=== PATIENT | female | born 1990 | race Caucasian/White ===

== ENCOUNTER 2021-12-26 16:27 | Observation (INO) | payer OTHER ==
--- NOTE | 2021-12-26 16:48 | ED Physician Documentation ---
PD HPI ABD PAIN - Stated complaint Stated Complaint: BLEEDING/10WKS - Chief complaint Chief Complaint: Abd Pain - History obtained from History obtained from: Patient - Additional information Additional information: 31-year-old at 10 weeks gestation has a known intrauterine demise based on ultrasound done yesterday. Has been hemorrhaging since 1 PM today. Pain is modest in the low back. She is Rh+. Review of Systems Ten Systems: 10 systems reviewed and negative Constitutional: reports: Reviewed and negative Cardiac: reports: Reviewed and negative Respiratory: reports: Reviewed and negative PD PAST MEDICAL HISTORY - Past Medical History Past Medical History: No - Present Medications Home Medications: Ambulatory Orders Medication Instructions Recorded Confirmed No Known Home Medications 12/26/21 12/26/21 - Allergies Allergies/Adverse Reactions: Allergies Allergy/AdvReac Type Severity Reaction Status Date / Time sumatriptan Allergy Unknown Verified 12/26/21 16:40 - Social History Does the pt smoke?: No Smoking Status: Never smoker - Family History Family history: reports: Non contributory PD ED PE NORMAL - Vitals Vital signs reviewed: Yes - General General: Alert and oriented X 3, Other (She is tearful; She has a towel between her legs that is fairly saturated with blood. Also blood at the ankles.) - HEENT HEENT: PERRL, EOMI - Neck Neck: Supple, no meningeal sign, No bony TTP - Cardiac Cardiac: RRR, No murmur - Respiratory Respiratory: No respiratory distress, Clear bilaterally - Abdomen Abdomen: Soft, Non tender - Back Back: No CVA TTP, No spinal TTP - Derm Derm: Normal color, Warm and dry - Extremities Extremities: No edema, No calf tenderness / cord - Neuro Neuro: Alert and oriented X 3, Normal speech Results - Vitals Vitals: Vital Signs - 24 hr 12/26/21 12/26/21 12/26/21 16:34 17:13 19:09 Temperature 37.3 C Heart Rate 108 H 116 H 121 H Respiratory 16 20 14 Rate Blood Pressure 137/82 H 111/61 127/79 O2 Saturation 99 100 99 Oxygen O2 Source Room air - Labs Labs: Laboratory Tests 12/26/21 12/26/21 12/26/21 16:55 16:55 16:55 WBC 11.6 H RBC 4.46 Hgb 12.7 Hct 38.5 MCV 86.3 MCH 28.5 MCHC 33.0 RDW 13.3 Plt Count 321 MPV 9.9 Neut # (Auto) 7.6 H Lymph # (Auto) 2.8 [place] # (Auto) 0.9 Eos # (Auto) 0.1 Baso # (Auto) 0.1 Absolute Nucleated RBC 0.00 Nucleated RBC % 0.0 Sodium 140 Potassium 3.7 Chloride 105 Carbon Dioxide 24 Anion Gap 11.0 BUN 7 Creatinine 0.7 Estimated GFR (MDRD) 98 Glucose 101 H Calcium 9.3 Blood Type O POSITIVE Antibody Screen NEGATIVE 12/26/21 19:01 WBC RBC Hgb 12.6 Hct 37.2 MCV MCH MCHC RDW Plt Count MPV Neut # (Auto) Lymph # (Auto) [place] # (Auto) Eos # (Auto) Baso # (Auto) Absolute Nucleated RBC Nucleated RBC % Sodium Potassium Chloride Carbon Dioxide Anion Gap BUN Creatinine Estimated GFR (MDRD) Glucose Calcium Blood Type Antibody Screen PD MEDICAL DECISION MAKING - ED course ED course: 31-year-old at 10 weeks gestation has known intrauterine demise. She is now bleeding heavily. After initial evaluation I spoke with Dr. Smith, OB by phone he will come and see the patient. His plan was to administer 800 Micrograms of misoprostol and observe her bleeding. This was done. At female's before 7 PM she went to the bathroom and had a syncopal episode there. She still bleeding fairly heavily so Dr. Smith was reconsulted and a repeat H&H was ordered. Subsequent to his repeat evaluation plans to give her Methergine and place in observation. Departure - Departure Disposition: ED Place in Observation Clinical Impression: Miscarriage, Vaginal bleeding, Syncope Condition: Stable
[2021-12-26] MEDS ORDERED: miSOPROStoL 200 MCG TABLET BC STA (16:58)
[2021-12-26 17:04] LABS: BASOPHILS # (AUTO) 0.1 10^3/uL (0.0-0.1); BASOPHILS % (AUTO) 0.4 %; EOSINOPHILS # (AUTO) 0.1 10^3/uL (0.0-0.7); EOSINOPHILS % (AUTO) 0.8 %; HCT - HEMATOCRIT 38.5 % (37.0-47.0); HGB - HEMOGLOBIN 12.7 g/dL (12.0-16.0); LYMPHOCYTES # (AUTO) 2.8 10^3/uL (1.5-3.5); LYMPHOCYTES % (AUTO) 24.4 %; MEAN CORPUSCULAR HEMOGLOBIN 28.5 pg (27.0-31.0); MEAN CORPUSCULAR VOLUME 86.3 fL (81.0-99.0); MEAN PLATELET VOLUME 9.9 fL (7.9-10.8); MONOCYTES # (AUTO) 0.9 10^3/uL (0.0-1.0); MONOCYTES % (AUTO) 7.9 %; NEUTROPHILS # (AUTO) 7.6 10^3/uL (1.5-6.6); NEUTROPHILS % (AUTO) 66.1 %; PLT - PLATELET COUNT 321 10^3/uL (130-450); RED BLOOD COUNT 4.46 10^6/uL (4.20-5.40); RED CELL DISTRIBUTION WIDTH 13.3 % (12.0-15.0); WHITE BLOOD COUNT 11.6 x10^3/uL (4.8-10.8)
[2021-12-26 17:16] LABS: CALCIUM 9.3 mg/dL (8.5-10.3); CREATININE 0.7 mg/dL (0.4-1.0); POTASSIUM 3.7 mmol/L (3.5-5.0)
--- NOTE | 2021-12-26 17:28 | CONSULTATION NOTE ---
Surgery Consult - Consult Date Consult Date: 12/26/21 - Chief Complaint Chief Complaint: Vaginal bleeding - Home Meds/Allergies Home Medications: Patient History Medication Instructions Recorded Confirmed No Known Home Medications 12/26/21 12/26/21 Allergies/Adverse Reactions: Allergies Allergy/AdvReac Type Severity Reaction Status Date / Time sumatriptan Allergy Unknown Verified 12/26/21 16:40 - Vital Signs Vital Signs: Last Vital Signs Temp 99.1 F 12/26/21 16:34 Pulse 116 H 12/26/21 17:13 Resp 20 12/26/21 17:13 BP 111/61 12/26/21 17:13 Pulse Ox 100 12/26/21 17:13 - Lab Results Result Diagrams: 12/26/21 16:55 12/26/21 16:55 - Consultation Note Consultation Note: Patient is a [id number]-year-old -0-1-2 presenting to triage for spontaneous . She was seen previously on 12/09/2021 for spotting and had an ultrasound that showed a gestational sac. This did seem likely to be a abnormal given her elevated hCG level and small gestational sac. However we elected to repeat ultrasound in 2 weeks as there is no yolk sac seen. She did start bleeding approximately 3 days ago which was light until today when she felt a gush and started bleeding profusely. She started feeling a pad every 30 minutes. She was instructed to come to the ED if this persisted for 2 hours. She did have an ultrasound yesterday confirmed and an embryonic . She feels well overall except for the heavy bleeding. Past medical history Depression and anxiety Migraines Asthma Right ovarian cyst Past surgical history Denies Family history Father: Diabetes, hypertension hyperlipidemia, heart attack Sister: Depression Paternal grandmother: Depression Social history Denies tobacco, alcohol, drugs Physical Constitutional: alert,oriented, well hydrated, well-developed, well nourished, appropriate dress. Visibly sad, but not crying. Cardiovascular: Mild tachycardia Respiratory: no respiratory distress. Abdomen: nondistended, nontender, no guarding. Psych: affect and mood appropriate given the situation, normal interaction, good eye contact. Assessment and plan 31-year-old -0-1-2 with incomplete 1. Incomplete : -As she is bleeding rather heavily, she is likely completing her miscarriage. Offered expectant, medical, surgical management. Patient is worried with the bleeding so would like to start with medical management and avoid the OR if possible. Blood pressure is stable, although mild tachycardia. H&H also stable. -800 mcg misoprostol buccal. Can take a drink of water after 30 minutes install the rest. Discussed possible fever, cramps, and temporary bleeding from this. If your becomes unstable, we would consider OR for urgent treatment -Plan to observe for several hours -Little benefit to repeating ultrasound today as the presence of gestational sac would not change our management as her primary concern is the bleeding. Once bleeding resolves, can image if needed. -Offered overnight observation, but patient would prefer to have temporary treatment as she is worried about her has been getting to work early tomorrow morning. If bleeding subsides and patient feels comfortable, she can be discharged home.
[2021-12-26] MEDS ORDERED: SODIUM CHLORIDE 0.9% 1,000 ML IV STA (18:58)
[2021-12-26 19:07] LABS: HCT - HEMATOCRIT 37.2 % (37.0-47.0); HGB - HEMOGLOBIN 12.6 g/dL (12.0-16.0)
[2021-12-26] MEDS ORDERED: METHYLERGONOVINE 0.2 MG/ML VIAL IM STA (19:30)
[2021-12-26] MEDS ORDERED: SODIUM CHLORIDE FLUSH 0.9% 10 ML SYRINGE IVP PRN (19:31)
[2021-12-26] MEDS ORDERED: ONDANSETRON 4 MG/2 ML VIAL IVP PRN (19:31)
[2021-12-26] MEDS ORDERED: IBUPROFEN 600 MG TABLET PO PRN (20:21)
[2021-12-26] MEDS: ACETAMINOPHEN 500 MG TABLET PO PRN (21:13)
[2021-12-26] MEDS: LACTATED RINGERS 1,000 ML IV SCH (21:13)
[2021-12-26 21:32] LABS: B. PARAPERTUSSIS- RESP PCR PAN NOT DETECTED; B. PERTUSSIS- RESP PCR PANEL NOT DETECTED; C. PNEUMONIAE- RESP PCR PANEL NOT DETECTED; CORONAVIRUS 229E-RESP PCR NOT DETECTED; CORONAVIRUS HKU1-RESP PCR NOT DETECTED; CORONAVIRUS NL63-RESP PCR NOT DETECTED; CORONAVIRUS OC43-RESP PCR NOT DETECTED; HUMAN METAPNEUMOVIRUS NOT DETECTED; INFLUENZA A- RESP PCR PANEL NOT DETECTED; INFLUENZA B - RESP PCR PANEL NOT DETECTED; M. PNEUMONIAE- RESP PCR PANEL NOT DETECTED; PARAINFLUENZA VIRUS 1 NOT DETECTED; PARAINFLUENZA VIRUS 2 NOT DETECTED; PARAINFLUENZA VIRUS 3 NOT DETECTED; PARAINFLUENZA VIRUS 4 NOT DETECTED; RHINOVIRUS/ENTEROVIRUS NOT DETECTED; RSV- RESP PCR PANEL NOT DETECTED; SARS-CoV-2 -RESP PCR PANEL NOT DETECTED
[2021-12-27] MEDS ORDERED: SODIUM CHLORIDE FLUSH 0.9% 10 ML SYRINGE IVP SCH (01:00)
[2021-12-27] MEDS: LACTATED RINGERS 1,000 ML IV SCH ×2 (01:29→01:32)
[2021-12-27 06:14] LABS: HCT - HEMATOCRIT 31.1 % (37.0-47.0); HGB - HEMOGLOBIN 10.2 g/dL (12.0-16.0)
--- NOTE | 2021-12-27 08:07 | DISCHARGE SUMMARY ---
Discharge Summary Admit Date: 12/27/21 Discharge Date: 12/28/21 Discharging Provider: Amish Smith MD Code Status: Attempt Resuscitation Condition at Discharge: Stable Discharge Disposition: 01 Home, Self Care - DIAGNOSES Admission Diagnoses: Spontaneous hemorrhage Discharge Diagnoses with Status of Each Condition: Spontaneous : Completed hemorrhage: Stable - HPI History of Present Illness: Doing well this AM. Bleeding has been minimal overnight. No dizziness. Did have a headache overnight, but feeling well today. Patient says she is doing mostly in bed. Passed clots and some tissue overnight. Bleeding has difficulty. Ambulating without problem. Physical Constitutional: alert, no acute distress, well hydrated, well developed, well nourished, appropriate dress. Cardiovascular: RRR. Respiratory: no respiratory distress. Abdomen: nondistended, nontender, no guarding. Psych: affect and mood appropriate, normal interaction, good eye contact. - HOSPITAL COURSE Hospital Course: Patient is a 31-year-old -0-1-2 admitted for heavy vaginal bleeding after incomplete . In the hospital, she received 800 mcg of misoprostol but bleeding continued. She had a near syncopal event, and does not think she lost consciousness. She then received 200 mcg of Methergine and was observed overnight. Bleeding greatly improved she felt well the morning after admission. She did have a drop in her hemoglobin from 12.7-10.2, but vitals were stable and patient felt well. Likely an appropriate drop. She was discharged with bleeding precautions with follow-up at [facility]. - ALLERGIES Allergies/Adverse Reactions: Allergies Allergy/AdvReac Type Severity Reaction Status Date / Time sumatriptan Allergy Unknown Verified 12/26/21 16:40 - MEDICATIONS Home Medications: Ambulatory Orders Medication Instructions Recorded Confirmed No Known Home Medications 12/26/21 12/26/21 - LABS Result Diagrams: 12/27/21 06:04 12/26/21 16:55 - FOLLOW UP Follow Up: In 1 to 2 weeks with Amish Smith at [facility] - TIME SPENT Time Spent in Discharge (Minutes): 25
[2021-12-27 08:41] VITALS: BP 109/55
[2021-12-27] MEDS: ACETAMINOPHEN 500 MG TABLET PO PRN (09:55)
== END 2021-12-27 11:30 | disposition home or self-care (01) ==
LOC: ED 16:27 → FBP 19:31
PROVIDERS: ADMIT Obstetrics & Gynecology; ATTEND Obstetrics & Gynecology
DX: O03.1 Delayed or excessive hemorrhage following incomplete spontaneous abortion (principal); Z20.822 Contact with and (suspected) exposure to COVID-19
CPT/HCPCS: 36415; 80048; 85014; 85018; 85025; 86850; 86900; 86901; 87633; 96372; 99284; 99285; A9270; G0378; J2210

== ENCOUNTER 2022-02-18 12:49 | Outpatient (CLI) | payer OTHER ==
[2022-02-18 13:12] LABS: BASOPHILS # (AUTO) 0.1 10^3/uL (0.0-0.1); BASOPHILS % (AUTO) 0.6 %; EOSINOPHILS # (AUTO) 0.1 10^3/uL (0.0-0.7); EOSINOPHILS % (AUTO) 1.3 %; HCT - HEMATOCRIT 40.4 % (37.0-47.0); HGB - HEMOGLOBIN 12.9 g/dL (12.0-16.0); LYMPHOCYTES # (AUTO) 2.2 10^3/uL (1.5-3.5); MEAN CORPUSCULAR HEMOGLOBIN 26.4 pg (27.0-31.0); MEAN CORPUSCULAR HGB CONC 31.9 g/dL (32.0-36.0); MEAN CORPUSCULAR VOLUME 82.8 fL (81.0-99.0); MEAN PLATELET VOLUME 9.8 fL (7.9-10.8); MONOCYTES # (AUTO) 0.4 10^3/uL (0.0-1.0); MONOCYTES % (AUTO) 5.6 %; NEUTROPHILS # (AUTO) 5.1 10^3/uL (1.5-6.6); NEUTROPHILS % (AUTO) 64.1 %; PLT - PLATELET COUNT 350 10^3/uL (130-450); RED BLOOD COUNT 4.88 10^6/uL (4.20-5.40); RED CELL DISTRIBUTION WIDTH 12.9 % (12.0-15.0); WHITE BLOOD COUNT 7.9 x10^3/uL (4.8-10.8)
[2022-02-18 13:13] LABS: HCG UR QUAL NEGATIVE
== END 2022-02-18 12:50 | disposition home or self-care (01) ==
LOC: LAB 12:49
PROVIDERS: ATTEND Obstetrics & Gynecology
DX: Z01.812 Encounter for preprocedural laboratory examination (principal); N92.0 Excessive and frequent menstruation with regular cycle; N83.209 Unspecified ovarian cyst, unspecified side; Z20.822 Contact with and (suspected) exposure to COVID-19
CPT/HCPCS: 36415; 81025; 85025; 86850; 86900; 86901

== ENCOUNTER 2022-02-19 06:09 | Day surgery (SDC) | payer OTHER ==
[2022-02-19] MEDS ORDERED: LACTATED RINGERS 1,000 ML IV ONE ×2 (06:50→10:00)
--- NOTE | 2022-02-19 07:09 | ANESTHESIA ---
Pre-Anesthesia VS, & Labs Height: 5 ft 4 in Weight (kg): 111.5 kg Body Mass Index: 42.2 BMI Classification: Morbidly Obese - NPO >8 hours - Is Patient ?: No - Diagnosis HEAVY MENSTRUAL, DESIRES STERILIZATION, OVARIAN CYST REMOVAL (Glaeunice,Stefani) - Procedure LAPAROSCOPIC SALPINGECTOMY (MejiaStefani) laparoscopic Ovarian cystectomy, endometrial ablation (MeenakshiLa medrano) Vital Signs: Temp Pulse Resp BP Pulse Ox O2 Flow Rate 36 C L 94 20 133/80 H 97 02/19/22 06:37 02/19/22 06:37 02/19/22 06:37 02/19/22 06:37 02/19/22 06:37 Home Medications and Allergies Home Medications: Ambulatory Orders Albuterol Sulfate [Proair Hfa Inhaler] 1 - 2 puffs PO PRN PRN 02/18/22 Cetirizine HCl [Zyrtec] 10 mg PO DAILY PRN 02/18/22 buPROPion HCL [Bupropion Xl] 150 mg PO DAILY 02/18/22 Albuterol Sulfate [Proair Hfa Inhaler] 1 - 2 puffs PO PRN PRN 02/18/22 Cetirizine HCl [Zyrtec] 10 mg PO DAILY PRN 02/18/22 buPROPion HCL [Bupropion Xl] 150 mg PO DAILY 02/18/22 Allergies/Adverse Reactions: Allergies Allergy/AdvReac Type Severity Reaction Status Date / Time sumatriptan Allergy Severe Emesis Verified 02/18/22 08:27 Anes History & Medical History - Anesthetic History Anesthesia Complications: reports: No previous complications (No history ane sthesia) Family history of Anesthesia Complications: Denies Family history of Malignant Hyperthermia: Denies - Medical History Cardiovascular: reports: None Pulmonary: reports: Asthma Gastrointestinal: reports: None Urinary: reports: None Neuro: reports: None Musculoskeletal: reports: None Endocrine/Autoimmune: reports: None Blood Disorders: reports: None Skin: reports: None, Eczema Smoking Status: Never smoker Psychosocial: reports: Depression History of Cancer?: No Exam General: Alert, Oriented x3, Cooperative, No acute distress Dental: WNL Mouth Openin Fingerbreadth Neck Mobility: Normal Mallampati classification: II Thyromental Distance: 4-6 cm Respiratory: Lungs clear, Normal breath sounds, No respiratory distress, No accessory muscle use Mental/Cognitive Status: Alert/Oriented X3, Normal for patient Cognitive Status: Within normal limits Plan Anesthesia Type: General Consent for Procedure(s) Verified and Reviewed: Yes Code Status: Attempt Resuscitation ASA classification: 2-Mild systemic disease Is this case an emergency?: No
[2022-02-19] MEDS ORDERED: DEXAMETHASONE 4 MG/ML VIAL ONE (07:32)
[2022-02-19] MEDS ORDERED: ONDANSETRON 4 MG/2 ML VIAL ONE ×2 (07:32→10:37)
[2022-02-19] MEDS ORDERED: ROCURONIUM 50 MG/5 ML VIAL ONE ×2 (07:32→08:58)
[2022-02-19] MEDS ORDERED: PROPOFOL 200 MG/20 ML VIAL IVP ONE (07:32)
[2022-02-19] MEDS ORDERED: MIDAZOLAM 2 MG/2 ML VIAL ONE (07:33)
[2022-02-19] MEDS ORDERED: fentaNYL 100 MCG/2 ML VIAL ONE ×2 (07:33→08:45)
[2022-02-19] MEDS ORDERED: LIDOCAINE-MPF 2% 5 ML VIAL ONE (07:34)
[2022-02-19] MEDS ORDERED: BUPIVACAINE 0.5% PF 30 ML VIAL ONE (07:46)
[2022-02-19] MEDS ORDERED: LIDOCAINE MPF 2%-EPI 1:200000 20 ML VIAL ONE (07:46)
[2022-02-19] MEDS ORDERED: SILVER NITRATE APPLICATOR TOP ONE (07:46)
[2022-02-19] MEDS ORDERED: BUPIVACAINE 0.5% PF 30 ML VIAL INFIL ONE (09:33)
[2022-02-19] MEDS ORDERED: LIDOCAINE MPF 2%-EPI 1:200000 20 ML VIAL SUBQ ONE (09:34)
[2022-02-19] MEDS ORDERED: HYDROcod/ACETAM 10 MG/325 MG TABLET PO PRN (09:42)
[2022-02-19] MEDS ORDERED: SUGAMMADEX 200 MG/2 ML VIAL IVP ONE (09:44)
--- NOTE | 2022-02-19 09:44 | OPERATIVE REPORT ---
Operative Report - General Procedure Date: 02/19/22 Planned Procedure: Hysteroscopy, endometrial ablation, laparoscopic right ovarian cystectomy, laparoscopic bilateral salpingectomy. Pre-Op Diagnosis: Abnormal uterine bleeding, desires sterility, right ovarian cyst Procedure Performed: Hysteroscopy, endometrial ablation, laparoscopic bilateral salpingectomy, laparoscopic right ovarian cystectomy Post Op Diagnosis: Abnormal uterine bleeding, desires sterility, right ovarian cyst - Procedure Note Primary Surgeon: Amish Smith MD Secondary Surgeon: Fatemeh Miller MD, MARK Regan Anesthesia Provider: Tod Arrieta CRNA Anesthesia Technique: General ET tube Pathology: Right ovarian cyst Bilateral fallopian tubes IV Fluids (mL): 800 Estimated Blood Loss (mL): 150 Urine Output (mL): 200 Complications: None - Other Other Information/Narrative: Prior to the procedure, patient was again consented for the procedure. We discussed the risk, benefits, alternatives of endometrial ablation including the risk of rebleeding prior to menopause which would necessitate likely hysterectomy. We also discussed the risk of post ablation syndrome with concomitant tubal ligation and the risk that usually shows up in 3 to 4 years with pain. If she develops pain, her likely neck step would be hysterectomy. We discussed other forms of control including LARC, partner vasectomy, patient desired to proceed with tubal ligation. We also discussed the risk of ovarian cystectomy and that with large cyst, sometimes there is no ovarian stroma left. If that the case, ovarian tissue is likely already destroyed and not functioning. If we had remove the whole ovary, it would likely not affect her significantly more than current. Removal of 1 ovary likely decreases the age of expected menopause by a couple of years, but the other very usually produces enough hormones. We also discussed the risks, alternatives, benefits to tubal ligation. We discussed long-acting control such as IUDs and implants. We had discussion about partner vasectomy and the pros and cons to this including a smaller surgery, and easier recovery. We discussed the general risk of surgery including infection, bleeding, damage to other organs, needing a larger incision. Specific to tubal ligation, we discussed the risk of regret, and discussed that regret is greater in those under 30, without children, and not in stable relationships. Patient says she is confident in her decision to not have any more children. We also discussed the risk of failure, and that less than 1/100 tubal ligation fail, but if it did, she would be at increased risk of ectopic . Patient desires to proceed with bilateral tubal ligation. Procedure summary Patient was taken the operating room where general anesthesia was obtained. She was prepped and draped in the dorsolithotomy position using Hibiclens in the perineum and chlorhexidine on the abdomen. Johns catheter was placed. Bear hugger and SCDs were on and activated. [place] speculum was palced in the vagina and the cervix was visualized. The anterior lip the cervix was grasped with a single-tooth tenaculum. A cervical block was performed with 8 mL of 2% lidocaine with epi and 1/2% Marcaine. The cervix was non-stenotic and allowed the easy passage of dilators, which were dilated to 6 mm. Hysteroscope was then used to hydrodilate using normal saline distention media. Hysteroscope was advanced without difficulty using hydrodistention. Cervical canal was noted to have she did have a rather long cervical canal, but no other abnormalities. Upon entry into the internal cervical os there was noted to be proliferative endometrium within the uterus. Bilateral tubal ostia were noted. Hysteroscope was then removed. Minimal fluid deficit, however there was an error in the acrylics machine, and a motor malfunction prevented accurate measurement of fluid. The uterus was then dilated to 8 cm with Hegar dilators. Was then sounded to a length of 11cm with a 5 cm cervix.The NovaSure device was then opened and tested. The instrument deployed normally. The instrument was set to the correct cavity length was introduced in the uterine cavity. The fan was deployed with gentle movements measuring 3.8 cm within the cavity. The cavity depth was 6 cm. The cone device was then slid down to the cervix and the device was activated. Total burn time was 54 seconds. The NOVA SURE was then retracted and was removed. The fan was examined and revealed charred tissue. At that point, a HUMI manipulator was placed through the cervical canal and inflated when in place. Tenaculum was removed and the cervix was noted to be hemostatic. Attention then turned to the abdominal portion of the procedure after sterile attire was exchanged. A combination of 2% lidocaine with epinephrine and 1/2% Marcaine was used to inject the skin infraumbilically. An 11 blade scalpel was used to incise the skin. Direct visual entry was used to place a 5 mm infraumbilical trocar. Upon entering the peritoneal cavity, low flow was used to ensure appropriate positioning. Upon visualization of the abdominal cavity, high flow was then initiated. 2 additional 5 mm trocars was placed under visualization in a similar fashion in the right and left lower quadrants. The patient was placed in Trendelenburg position and the bowel was removed from the posterior cul-de-sac. The left tube and ovary appeared grossly normal. The right tube was dilated with a large ovarian cyst. The uterus was elevated and the cyst was removed from the pelvis and the uterus was lowered below this. Using laparoscopic scissors, a an incision in the serosa was made and opened. This was dissected a round the opening then carried downward giving access to the cyst wall. In the process of dissecting, the cyst ruptured and the suction state archivist device was used to absorb the cyst fluid. After removing the serous fluid, the cyst wall was grasped with laparoscopic graspers and from the ovarian stroma. There is minimal bleeding. After complete removal of the cyst wall, it was removed from the laparoscopic port and sent for pathology. Bleeding appeared normal. After visualization of the left fallopian tube, it was grasped with an atraumatic grasper. The mesosalpinx was cauterized and cut with a Ligasure device. Attention was then turned to the right fallopian tube which was then removed in a similar fashion. The abdomen was washed with copious amount of fluid. The abdomen was reviewed for hemostasis, and a healthy-appearing liver was noted. The trocars were then removed, and abdomen was evacuated of gas. The trocar sites were then closed with a 4-0 Monocryl in a sub-cuticular fashion and covered with Dermabond. The uterine manipulator was removed from the cervix and hemostasis was once again noted. All counts were correct. Patient was taken to the PACU in stable condition.
[2022-02-19] MEDS ORDERED: HYDROmorphone 0.5 MG/0.5 ML SYRINGE IVP PRN (09:59)
[2022-02-19] MEDS ORDERED: ONDANSETRON 4 MG/2 ML VIAL IVP PRN (09:59)
[2022-02-19] MEDS ORDERED: NALOXONE 0.4 MG/ML VIAL IVP PRN (09:59)
[2022-02-19] MEDS ORDERED: ATROPINE ABBOJECT 1 MG/10 ML SYRINGE IVP PRN (09:59)
[2022-02-19] MEDS ORDERED: MORPHINE 2 MG/ML CARPUJECT IVP PRN (09:59)
[2022-02-19] MEDS ORDERED: fentaNYL 100 MCG/2 ML VIAL IVP PRN (09:59)
[2022-02-19] MEDS ORDERED: LACTATED RINGERS 1,000 ML IV SCH (10:00)
[2022-02-19] MEDS ORDERED: ACETAMINOPHEN 1,000 MG/100 ML 1,000 MG/100 ML BAG IV ONE (10:33)
[2022-02-19] MEDS: HYDROmorphone 1 MG/ML CARPUJECT ONE ×2 (10:34→10:45)
[2022-02-19] MEDS ORDERED: KETOROLAC 15 MG/ML VIAL IVP PRN (10:34)
[2022-02-19] MEDS ORDERED: HYDROmorphone 1 MG/ML CARPUJECT ONE (10:45)
[2022-02-19] MEDS ORDERED: ACETAMINOPHEN 1000 MG/100 ML IV ONE (12:00)
[2022-02-19 12:09] VITALS: BP 118/68
--- NOTE | 2022-02-19 13:23 | ANESTHESIA POST OP EVALUATION ---
Anesthesia Post Eval - Post Anesthesia Eval Vitals: Last Vital Signs Temp 36.9 C 02/19/22 12:09 Pulse 80 02/19/22 12:09 Resp 16 02/19/22 12:09 BP 118/68 02/19/22 12:09 Pulse Ox 98 02/19/22 12:09 O2 Flow Rate CV Function Including HR & BP: Stable Pain Control: Satisfactory Nausea & Vomiting: Negative Mental Status: Baseline Respiratory Status: Airway Patent Hydration Status: Satisfactory Anesthesia Complications: None
== END 2022-02-19 06:10 | disposition home or self-care (01) ==
LOC: SDS 06:09
PROVIDERS: ATTEND Obstetrics & Gynecology
PROC: 0UB74ZZ Excision of Bilateral Fallopian Tubes, Percutaneous Endoscopic Approach (ICD-10-PCS; principal; 2022-02-19 07:30)
PROC: 0UB04ZZ Excision of Right Ovary, Percutaneous Endoscopic Approach (ICD-10-PCS; 2022-02-19 07:30)
DX: Z30.2 Encounter for sterilization (principal); D27.0 Benign neoplasm of right ovary; N93.9 Abnormal uterine and vaginal bleeding, unspecified; E66.01 Morbid (severe) obesity due to excess calories; Z68.41 Body mass index [BMI] 40.0-44.9, adult; J45.909 Unspecified asthma, uncomplicated
CPT/HCPCS: 36415; 58563; 58661; 58662; J1170; J7120